=== PATIENT | male | born 1945 ===

== ENCOUNTER → 2018-11-29 21:11 | Outpatient (REF) | payer SELFPAY ==
[2018-12-01 16:15] LABS: Glucose-6-Phosphate Dehydrogen 12.3 U/g Hgb (7.0-20.5)
== END ==
LOC: LAB 21:11
PROVIDERS: Visit Provider Naturopath
DX: C67.9 Malignant neoplasm of bladder, unspecified (principal)
CPT/HCPCS: 36415; 82955